=== PATIENT | female | born 1995 | race Caucasian/White ===

== ENCOUNTER 2021-09-16 11:49 | Outpatient (REF) | payer OTHER, SELFPAY ==
--- NOTE | 2021-09-16 10:15 | PAPFT_PTH ---
PATIENT: Stacey Avendaño LOC: [facility] U#:[id number] AGE/SX: 26/F ROOM: RE09/16/[address]: Natalie Call MD : 1995 BED: DIS: 09/16/2021 SPEC #: [id number] RECD: 09/16/21 12:51 STATUS: NITAAmol REQ #: [id number] MELIDA: 09/16/21 10:[address]: Natalie Call DEPT: [facility] Cytology RECD BY: Emmy Torres ENTERED: 09/16/21 12:52 SP TYPE: PAPFT MEHRDAD DR: Unknown,Unknown Tissues: 1 - CX/ENDOCX FOR PAP SMEARS Procedures: PAP THIN PREP/[facility] Screening Comments: [id number]
== END 2021-09-16 11:50 | disposition home or self-care (01) ==
LOC: LBN 11:49
PROVIDERS: Visit Provider Obstetrics & Gynecology
DX: Z12.4 Encounter for screening for malignant neoplasm of cervix (principal)
CPT/HCPCS: 88142

== ENCOUNTER 2025-08-23 15:56 | Outpatient (REF) | payer BC, SELFPAY ==
--- NOTE | 2025-08-23 15:50 | PAPFT_PTH ---
PATIENT: Stacey Avendaño LOC: [facility] U#:[id number] AGE/SX: 30/F ROOM: RE08/23/[address]: Natalie Call MD : 1995 BED: DIS: 08/23/2025 SPEC #: [id number] RECD: 08/23/25 18:18 STATUS: [place] #: [id number] MELIDA: 08/23/25 15:[address]: Natalie Call DEPT: [facility] Cytology RECD BY: Emmy Torres ENTERED: 08/23/25 18:18 SP TYPE: PAPFT LITTLEHR DR: Dre Juan Tissues: 1 - CX/ENDOCX FOR PAP SMEARS Procedures: PAP THIN PREP/[facility] Screening Comments: [id number]
== END 2025-08-23 15:57 | disposition home or self-care (01) ==
LOC: LBN 15:56
PROVIDERS: PCP Family Medicine; Visit Provider Obstetrics & Gynecology
DX: Z12.4 Encounter for screening for malignant neoplasm of cervix (principal)
CPT/HCPCS: 88142